=== PATIENT | female | born 1990 | race American Indian/Alaskan Native ===

== ENCOUNTER 2017-01-23 13:11 | Emergency (ER) | payer MEDICAID ==
[2017-01-23 15:02] LABS: Bilirubin,Urine NEG (Negative); Blood,Urine LG (Negative); Ketones,Urine NEG (Negative); Leukocyte Esterase,Urine NEG (Negative); Mucus,Urine 1+ /HPF; Nitrite,Urine NEG (Negative); Protein,Urine <15 mg/dL mg/dL (Negative); Urobilinogen,Urine < 2.0 mg/dL (<2.0)
--- NOTE | 2017-01-23 15:12 | Emergency Department Report ---
Chief Complaint: Vaginal Bleeding Stated Complaint: VAGINAL BLEEDING Time Seen by Provider: 01/23/17 15:04 - HPI History of Present Illness: Patient is a 26-year-old female is markedly 5 weeks who is experiencing vaginal bleeding. Patient states started relatively light but is picked up to the level of a period. Patient states she has some mild cramping in the suprapubic region. Patient has 2 living children has never had a miscarriage. Area fever at this time. Patient states her blood type is A+ - ROS Review of Systems: Review of systems negative except for those illness in HPI - Exam Vital Signs: Vital Signs 01/23/17 13:15 Temperature 97.6 F Pulse Rate 79 Respiratory 18 Rate Blood Pressure 142/62 O2 Sat by Pulse 100 Oximetry Physical Exam: Focused physical exam patient is alert and oriented 3 in no acute distress heart and lung exams are within normal limits abdomen is soft nondistended with mild tenderness in the suprapubic region. MSE screening note: Focused history and physical exam performed. Due to findings the following was ordered: Patient will have a quantitative drawn as well as ultrasound to rule out miscarriage ED Disposition for MSE Condition: Stable Referrals: PRIMARY CARE [Primary Care Provider] - 3-5 Days
--- NOTE | 2017-01-23 15:40 | Emergency Department Report ---
ED Female HPI - General Chief complaint: Vaginal Bleeding Stated complaint: VAGINAL BLEEDING Time Seen by Provider: 01/23/17 15:04 Source: patient Mode of arrival: Ambulatory Limitations: No Limitations - History of Present Illness Initial comments: Patient is a 26-year-old female is markedly 5 weeks who is experiencing vaginal bleeding. Patient states started relatively light but is picked up to the level of a period. Patient states she has some mild cramping in the suprapubic region. Patient has 2 living children has never had a miscarriage. Area fever at this time. Patient states her blood type is A+ MD Complaint: vaginal bleeding Onset/Timin -: Gradual, days(s) Radiation: suprapubic Severity: moderate Severity scale (0 -10): 4 Quality: cramping, aching Consistency: constant Improves with: none Worsens with: none Are you Now?: Yes Last Menstrual Period: 12/12/16 EDC: 09/18/17 - Related Data Previous Rx's Medication Instructions Recorded Last Taken Type Ciprofloxacin HCl [Ciprofloxacin 500 mg PO Q12HR #20 tab 06/24/15 Unknown Rx TAB] HYDROcodone/APAP 5-325 [[place] 1 each PO Q6HR PRN #20 tablet 06/24/15 Unknown Rx 5/325] metroNIDAZOLE [Flagyl] 500 mg PO Q8HR #30 tablet 06/24/15 Unknown Rx traMADol [Ultram] 50 mg PO Q8HR PRN #20 tablet 01/23/17 Unknown Rx Allergies Allergy/AdvReac Type Severity Reaction Status Date / Time No Known Allergies Allergy Unverified 06/24/15 11:15 ED Review of Systems ROS: Stated complaint: VAGINAL BLEEDING Other details as noted in HPI Constitutional: denies: chills, fever Eyes: denies: eye pain, eye discharge, vision change ENT: denies: ear pain, throat pain Respiratory: denies: cough, shortness of breath, wheezing Cardiovascular: denies: chest pain, palpitations Endocrine: no symptoms reported Gastrointestinal: denies: abdominal pain, nausea, diarrhea Genitourinary: denies: urgency, dysuria, discharge Musculoskeletal: denies: back pain, joint swelling, arthralgia Skin: denies: rash, lesions Neurological: denies: headache, weakness, paresthesias Psychiatric: denies: anxiety, depression Hematological/Lymphatic: denies: easy bleeding, easy bruising ED Past Medical Hx - Past Medical History Previous Medical History?: No - Surgical History Additional Surgical History: - Social History Smoking Status: Current Every Day Smoker Substance Use Type: None - Medications Home Medications: Home Medications Medication Instructions Recorded Confirmed Last Taken Type Ciprofloxacin HCl [Ciprofloxacin 500 mg PO Q12HR #20 tab 06/24/15 Unknown Rx TAB] HYDROcodone/APAP 5-325 [[place] 1 each PO Q6HR PRN #20 tablet 06/24/15 Unknown Rx 5/325] metroNIDAZOLE [Flagyl] 500 mg PO Q8HR #30 tablet 06/24/15 Unknown Rx traMADol [Ultram] 50 mg PO Q8HR PRN #20 tablet 01/23/17 Unknown Rx ED Physical Exam - General Limitations: No Limitations General appearance: alert, in no apparent distress - Head Head exam: Present: atraumatic, normocephalic - Eye Eye exam: Present: normal appearance - ENT ENT exam: Present: mucous membranes moist - Neck Neck exam: Present: normal inspection - Respiratory Respiratory exam: Present: normal lung sounds bilaterally. Absent: respiratory distress - Cardiovascular Cardiovascular Exam: Present: regular rate, normal rhythm. 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 Absent: tenderness, CVA tenderness (R), CVA tenderness (L), muscle spasm, paraspinal tenderness, vertebral tenderness - Neurological Exam Neurological exam: Present: alert, oriented X3 - Psychiatric Psychiatric exam: Present: normal affect, normal mood - Skin Skin exam: Present: warm, dry, intact, normal color. Absent: rash ED Course Vital Signs 01/23/17 13:15 Temperature 97.6 F Pulse Rate 79 Respiratory 18 Rate Blood Pressure 142/62 O2 Sat by Pulse 100 Oximetry ED Medical Decision Making - Medical Decision Making Patient is a 26-year-old female is markedly 5 weeks who is experiencing vaginal bleeding. Patient states started relatively light but is picked up to the level of a period. Patient states she has some mild cramping in the suprapubic region. Patient has 2 living children has never had a miscarriage. Area fever at this time. Patient states her blood type is A+ exam : pt appears well with nad , nontoxic abd soft nontender no rebound no hernia no bruit, pt deferres vaginal exam to obgyn, labs: hcg quat: 68.3, us bd/ transvag: no IUP, discussed finding with patient, pt will follow up with [facility] on thursday 2 days, pt has appointment confirmed with same. pt will be discharge in stable condition at this time. Critical care attestation.: If time is entered above; I have spent that time in minutes in the direct care of this critically ill patient, excluding procedure time. ED Disposition Clinical Impression: Miscarriage Disposition: DC- TO HOME OR SELFCARE Is pt being admited?: No Does the pt Need Aspirin: No Condition: Good Instructions: Spontaneous Miscarriage (ED) Additional Instructions: follow up with OBGYN at [facility] Prescriptions: traMADol [Ultram] 50 mg PO Q8HR PRN #20 tablet PRN Reason: Pain Referrals: PRIMARY CARE, [Primary Care Provider] - 3-5 Days Forms: Work/School Release Form(ED) Time of Disposition: 18:20
--- NOTE | 2017-01-23 17:40 | Ultrasound Report ---
FINAL REPORT PROCEDURE: Transvaginal obstetrical ultrasound. TECHNIQUE: Real-time transvaginal sonography of the uterus, placenta, amniotic fluid, adnexa, and fetus was performed with image documentation. Measurements were obtained to determine age/size. M-mode Doppler was used to document heartbeat. CPT 11617 HISTORY: Vaginal bleeding, 5 weeks . COMPARISON: No applicable studies. FINDINGS: The uterus measures 7.7 centimeters x 3.8 centimeters x 5.5 centimeters. The myometrium appears uniform. The endometrial echo complex appears uniform. The endometrium measures 12.9 millimeters. There is no intrauterine gestational sac. Correlation with a quantitative beta HCG is recommended. The left ovary is not well seen but is grossly normal. The right ovary is not visualized. There is no fluid in the cul-de-sac. IMPRESSION: No evidence of an intrauterine .
--- NOTE | 2017-01-23 18:00 | Ultrasound Report ---
FINAL REPORT PROCEDURE: Transabdominal obstetrical ultrasound. TECHNIQUE: Real-time transabdominal sonography of the uterus, placenta, amniotic fluid, adnexa, and fetus was performed with image documentation. Measurements were obtained to determine age/size. M-mode Doppler was used to document heartbeat. CPT 80627 HISTORY: Vaginal bleeding, 5 weeks . COMPARISON: No applicable studies. FINDINGS: Image quality is limited because the patient's bladder was not distended. The uterus measures 7.7 centimeters x 3.8 centimeters x 5.5 centimeters. The myometrium is grossly normal. The endometrial echo complex has a maximum thickness of 1.2 centimeters. There is no evidence of an intrauterine gestational sac. The left ovary appears normal. The right ovary is not identified. IMPRESSION: No evidence of an intrauterine . Correlation with quantitative beta HCG recommended.
[2017-01-23 18:30] VITALS: BP 138/70
== END 2017-01-23 18:29 | disposition home or self-care (01) ==
LOC: ED 13:11
DX: O03.9 Complete or unspecified spontaneous abortion without complication (principal); O99.331 Smoking (tobacco) complicating pregnancy, first trimester; Z3A.01 Less than 8 weeks gestation of pregnancy; F17.200 Nicotine dependence, unspecified, uncomplicated
CPT/HCPCS: 36415; 76801; 76817; 81001; 84702; 99284

== ENCOUNTER 2017-04-27 21:36 | Emergency (ER) | payer MEDICAID ==
[2017-04-27] MEDS ORDERED: TYLENOL ONE (21:59)
[2017-04-27 22:08] LABS: Hemoglobin 10.1 gm/dl (10.1-14.3); Mean Corpuscular HGB Conc 31 % (30-34); Mean Corpuscular Volume 79 fl (79-97); Platelet Count 288 K/mm3 (140-440); Red Blood Count 4.16 M/mm3 (3.65-5.03); Red Cell Distribution Width 16.1 % (13.2-15.2)
[2017-04-27 22:22] LABS: Alanine Aminotransferase 11 units/L (7-56); Albumin 3.2 g/dL (3.9-5); BUN/Creatinine Ratio 15; Blood Urea Nitrogen 9 mg/dL (7-17); Calcium 8.1 mg/dL (8.4-10.2); Calcium 8.4 mg/dL (8.4-10.2); Hemolysis Index 0
[2017-04-27 22:27] LABS: Mean Corpuscular Hemoglobin 24 pg (28-32)
[2017-04-27 23:05] LABS: Band Neutrophils # (Manual) 1.3 K/mm3; Basophils % (Manual) 0 % (0.0-1.8); Total Cells Counted 100
[2017-04-27 23:06] LABS: Giant Platelets Few; Hypochromasia 1+; Ovalocytes 1+
[2017-04-28] MEDS ORDERED: TYLENOL PO ONE ×2 (01:03→06:28)
[2017-04-28 03:25] LABS: Bilirubin,Urine NEG (Negative); Blood,Urine NEG (Negative); Color,Urine Straw (Yellow); Mucus,Urine FEW /HPF; Protein,Urine <15 mg/dL mg/dL (Negative); RBC,Urine < 1.0 /HPF (0.0-6.0); Urobilinogen,Urine < 2.0 mg/dL (<2.0)
[2017-04-28] MEDS ORDERED: NORCO 5/325 PO ONE (06:28)
--- NOTE | 2017-04-28 06:36 | Emergency Department Report ---
HPI - General Chief Complaint: Abdominal Pain Time Seen by Provider: 04/28/17 06:13 - HPI HPI: 26-year-old asthmatic female presents to the emergency department yesterday after having severe pelvic pain and passing out. She thinks she did hit her head at that time but denies any laceration or any obvious deformity. She also has been having a few days of sore throat and feels like her neck is swollen. She also complains of some ear pain. At that time that the patient had the beginning of her pelvic pain, she had some release of some type of vaginal discharge but that has since stopped. She denies any vaginal bleeding. She has a known history of ovarian cyst and says "I think the cyst ruptured." No recent travel or sick contacts at home. She did not take anything for her symptoms prior to presentation. ED Past Medical Hx - Past Medical History Previous Medical History?: Yes Additional medical history: ovarian cyst - Surgical History Past Surgical History?: Yes Additional Surgical History: - Social History Smoking Status: Never Smoker - Medications Home Medications: Home Medications Medication Instructions Recorded Confirmed Last Taken Type Ciprofloxacin HCl [Ciprofloxacin 500 mg PO Q12HR #20 tab 06/24/15 Unknown Rx TAB] HYDROcodone/APAP 5-325 [[place] 1 each PO Q6HR PRN #20 tablet 06/24/15 Unknown Rx 5/325] Amoxicillin/Potassium Clav 1 each PO BID #20 tablet 04/28/17 Unknown Rx [Augmentin 500-125 Tablet] HYDROcodone/ACETAMINOPHEN [[place] 1 each PO Q6H PRN #12 tablet 04/28/17 Unknown Rx 5-325 Tablet] metroNIDAZOLE [Flagyl TAB] 500 mg PO BID #14 tablet 04/28/17 Unknown Rx traMADol [Ultram 50 MG tab] 50 mg PO Q8HR PRN #12 tablet 04/28/17 Unknown Rx ED Review of Systems ROS: Stated complaint: PASS OUT Other details as noted in HPI Comment: All other systems reviewed and negative Constitutional: fever. denies: weakness Eyes: denies: eye pain, eye discharge, vision change ENT: ear pain, throat pain Respiratory: denies: cough, shortness of breath, wheezing Cardiovascular: denies: chest pain, palpitations Gastrointestinal: denies: vomiting, constipation Genitourinary: other (pelvic pain). denies: dysuria Musculoskeletal: denies: back pain, joint swelling, arthralgia Skin: denies: rash, lesions Neurological: denies: headache, weakness, paresthesias Physical Exam - Physical Exam Vital Signs: Vital Signs 04/27/17 04/28/17 04/28/17 21:44 06:15 06:16 Temperature 100.3 F H Pulse Rate 89 Respiratory 16 16 16 Rate Blood Pressure 125/66 Blood Pressure 122/82 [Left] O2 Sat by Pulse 100 100 100 Oximetry Physical Exam: GENERAL: The patient is well-developed well-nourished. HENT: Normocephalic. Atraumatic. Patient has moist mucous membranes. EYES: Extraocular motions are intact. Pupils equal reactive to light bilaterally. NECK: Supple. Trachea is midline. CHEST/LUNGS: Clear to auscultation. There is no respiratory distress noted. HEART/CARDIOVASCULAR: Regular. There is no tachycardia. There is no murmur. ABDOMEN: Abdomen is soft, nontender. Patient has normal bowel sounds. There is no abdominal distention. SKIN: Skin is warm and dry. NEURO: The patient is awake, alert, and oriented. The patient is cooperative. The patient has no focal neurologic deficits. The patient has normal speech and gait. MUSCULOSKELETAL: There is no tenderness or deformity. There is no limitation range of motion. There is no evidence of acute injury. : No vaginal or labial lesions seen. There is some malodorous mild yellowish white discharge seen in the vaginal vault. ED Course Vital Signs 04/27/17 04/28/17 04/28/17 21:44 06:15 06:16 Temperature 100.3 F H Pulse Rate 89 Respiratory 16 16 16 Rate Blood Pressure 125/66 Blood Pressure 122/82 [Left] O2 Sat by Pulse 100 100 100 Oximetry ED Medical Decision Making - Lab Data Result diagrams: 04/27/17 21:56 04/27/17 21:56 - Radiology Data Radiology results: report reviewed ULTRASOUND PELVIS DUPLEX DOPPLER COMPLETE ULTRASOUND TRANSVAGINAL HISTORY: Pelvic pain. COMPARISON: 06/24/15. TECHNIQUE: Transabdominal and transvaginal ultrasound with color and spectral doppler interrogation. FINDINGS: Uterus: The uterus is anteverted. The uterus measures 7.6 x 4.8 x 5.3 cm. No uterine fibroids are detected. The cervix contains a few tiny nabothian cysts but is otherwise unremarkable. Endometrium: 11 mm. No mass or fluid collection. Right ovary: 2.6 x 1.9 x 1.6 cm. No focal abnormality. Left ovary: 2.6 x 1.5 x 1.5 cm. No focal abnormality. No pelvic fluid or mass is identified. Spectral wave forms demonstrate arterial flow to both ovaries. IMPRESSION: Unremarkable transabdominal and transvaginal pelvic ultrasounds. Transcribed By: TTR Dictated By: ROBYN CRUZ JR, MD Electronically Authenticated By: ROBYN CRUZ JR, MD Signed Date/Time: 04/28/17 0809 - Medical Decision Making Patient presents with complaints of sore throat, ear pain, body aches, pelvic pain. She has a leukocytosis of 20,000 concerning for some underlying infection. The patient was positive on her rapid strep test. On top of that, the patient was positive for bacterial vaginosis. Ultrasound of the pelvis did not show any torsion, cysts, abscess, fluid collections or any other acute process. She was given some Tylenol and pain medication and upon reevaluation she is feeling improved. Fever has resolved and all vital signs and stable throughout her ED course. She will be started on Augmentin for her strep pharyngitis and Flagyl for the BV. She will follow-up with her primary care physician and [facility] and will return to the ER with any worsening of her symptoms or any acute distress. - Differential Diagnosis strep pharyngitis, viral syndrome, BV, , UTI Critical Care Time: No Critical care attestation.: If time is entered above; I have spent that time in minutes in the direct care of this critically ill patient, excluding procedure time. ED Disposition Clinical Impression: Strep pharyngitis, Bacterial vaginosis, Pelvic pain Disposition: - TO HOME OR SELFCARE Is pt being admited?: No Condition: Stable Instructions: Bacterial Vaginosis (ED), Strep Throat (ED) Additional Instructions: Take the Augmentin and Flagyl as prescribed. I recommend picking up a probiotic since you are on 2 different antibiotics. Flagyl/metronidazole has a very severe reaction to any amount of alcohol consumed and therefore I recommend that you not drink any alcohol while taking this medication and even for a day or 2 after completing the medication. Follow-up with your primary care physician and [facility]. Return to the emergency Department with any worsening of your symptoms or any acute distress. You have been prescribed a medication that is sedating and therefore should not be taken prior to driving, working, and responsible for children and in no way should be mixed with alcohol of any quantity. Prescriptions: Amoxicillin/Potassium Clav [Augmentin 500-125 Tablet] 1 each PO BID #20 tablet HYDROcodone/ACETAMINOPHEN [[place] 5-325 Tablet] 1 each PO Q6H PRN #12 tablet PRN Reason: Pain metroNIDAZOLE [Flagyl TAB] 500 mg PO BID #14 tablet traMADol [Ultram 50 MG tab] 50 mg PO Q8HR PRN #12 tablet PRN Reason: Pain Referrals: PRIMARY CARE, [Primary Care Provider] - 3-5 Days Forms: Work/School Release Form(ED)
[2017-04-28] MEDS ORDERED: AUGMENTIN 875 MG PO ONE (06:56)
[2017-04-28 07:01] LABS: HCG Qualitative,Urine Negative (Negative)
--- NOTE | 2017-04-28 08:17 | Ultrasound Report ---
ULTRASOUND PELVIS DUPLEX DOPPLER COMPLETE ULTRASOUND TRANSVAGINAL HISTORY: Pelvic pain. COMPARISON: 06/24/15. TECHNIQUE: Transabdominal and transvaginal ultrasound with color and spectral doppler interrogation. FINDINGS: Uterus: The uterus is anteverted. The uterus measures 7.6 x 4.8 x 5.3 cm. No uterine fibroids are detected. The cervix contains a few tiny nabothian cysts but is otherwise unremarkable. Endometrium: 11 mm. No mass or fluid collection. Right ovary: 2.6 x 1.9 x 1.6 cm. No focal abnormality. Left ovary: 2.6 x 1.5 x 1.5 cm. No focal abnormality. No pelvic fluid or mass is identified. Spectral wave forms demonstrate arterial flow to both ovaries. IMPRESSION: Unremarkable transabdominal and transvaginal pelvic ultrasounds.
[2017-04-28 09:10] VITALS: BP 107/61
== END 2017-04-28 10:00 | disposition home or self-care (01) ==
LOC: ED 21:36
DX: N76.0 Acute vaginitis (principal); J02.0 Streptococcal pharyngitis
CPT/HCPCS: 36415; 76830; 80048; 80053; 81001; 81025; 85007; 85025; 87086; 87210; 87430; 87591; 93975; 99284

== ENCOUNTER 2017-07-20 14:38 | Emergency (ER) | payer SELFPAY ==
--- NOTE | 2017-07-20 17:18 | Emergency Department Report ---
ED Allergic Reaction HPI - General Chief complaint: Skin Rash Stated complaint: RASH ALL OVER BODY Time Seen by Provider: 07/20/17 17:17 Source: patient Mode of arrival: Ambulatory Limitations: No Limitations - History of Present Illness Initial Comments: 26-year-old female past medical history nut allergy presents with complaint of itchy hives and rash on face arms chest back and legs since early this morning. Patient denies contact with any new allergens including food allergies animal dander new medications. Patient denies any facial swelling shortness of breath. Patient speaking in full sentences. Denies any recent travel use of new cosmetics or soaps or fabrics. Patient is fully lucid awake alert and oriented 3 speaking in full sentences with no audible wheezing or stridor. Denies any shortness of breath at this time. Patient MD Complaint: allergic reaction, hives -: This morning Exposure: unknown Symptoms: rash, itching Severity: mild Treatment Prior to Arrival: benadryl - Related Data Previous Rx's Medication Instructions Recorded Last Taken Type Ciprofloxacin HCl [Ciprofloxacin 500 mg PO Q12HR #20 tab 06/24/15 Unknown Rx TAB] HYDROcodone/APAP 5-325 [[place] 1 each PO Q6HR PRN #20 tablet 06/24/15 Unknown Rx 5/325] Amoxicillin/Potassium Clav 1 each PO BID #20 tablet 04/28/17 Unknown Rx [Augmentin 500-125 Tablet] HYDROcodone/ACETAMINOPHEN [[place] 1 each PO Q6H PRN #12 tablet 04/28/17 Unknown Rx 5-325 Tablet] metroNIDAZOLE [Flagyl TAB] 500 mg PO BID #14 tablet 04/28/17 Unknown Rx traMADol [Ultram 50 MG tab] 50 mg PO Q8HR PRN #12 tablet 04/28/17 Unknown Rx EPINEPHrine [Epipen] 0.3 mg IJ ONCE PRN #1 auto.injct 07/20/17 Unknown Rx Famotidine [Pepcid] 20 mg PO BID PRN #30 tablet 07/20/17 Unknown Rx Hydroxyzine HCl 25 mg PO Q8H PRN #20 tablet 07/20/17 Unknown Rx Loratadine [Claritin] 10 mg PO DAILY PRN #30 tablet 07/20/17 Unknown Rx Prednisone [predniSONE 10 mg 10 mg PO .TAPER #1 tab.ds.pk 07/20/17 Unknown Rx (6-Day Pack, 21 Tabs)] Allergies Allergy/AdvReac Type Severity Reaction Status Date / Time nut - unspecified Allergy Rash Verified 07/20/17 15:48 peanut Allergy Anaphylaxis Verified 07/20/17 15:48 tree and shrub pollen Allergy Rash Verified 07/20/17 15:48 ED Review of Systems ROS: Stated complaint: RASH ALL OVER BODY Other details as noted in HPI Constitutional: denies: chills, fever Eyes: denies: eye pain, eye discharge, vision change ENT: denies: ear pain, throat pain Respiratory: denies: cough, shortness of breath, wheezing Cardiovascular: denies: chest pain, palpitations Endocrine: no symptoms reported Gastrointestinal: denies: abdominal pain, nausea, diarrhea Genitourinary: denies: urgency, dysuria, discharge Musculoskeletal: denies: back pain, joint swelling, arthralgia Skin: as per HPI, rash, pruritus. denies: lesions Neurological: denies: headache, weakness, paresthesias Psychiatric: denies: anxiety, depression Hematological/Lymphatic: denies: easy bleeding, easy bruising ED Past Medical Hx - Past Medical History Additional medical history: ovarian cyst - Surgical History Additional Surgical History: - Social History Smoking Status: Current Every Day Smoker Substance Use Type: None - Medications Home Medications: Home Medications Medication Instructions Recorded Confirmed Last Taken Type Ciprofloxacin HCl [Ciprofloxacin 500 mg PO Q12HR #20 tab 06/24/15 Unknown Rx TAB] HYDROcodone/APAP 5-325 [[place] 1 each PO Q6HR PRN #20 tablet 06/24/15 Unknown Rx 5/325] Amoxicillin/Potassium Clav 1 each PO BID #20 tablet 04/28/17 Unknown Rx [Augmentin 500-125 Tablet] HYDROcodone/ACETAMINOPHEN [[place] 1 each PO Q6H PRN #12 tablet 04/28/17 Unknown Rx 5-325 Tablet] metroNIDAZOLE [Flagyl TAB] 500 mg PO BID #14 tablet 04/28/17 Unknown Rx traMADol [Ultram 50 MG tab] 50 mg PO Q8HR PRN #12 tablet 04/28/17 Unknown Rx EPINEPHrine [Epipen] 0.3 mg IJ ONCE PRN #1 auto.injct 07/20/17 Unknown Rx Famotidine [Pepcid] 20 mg PO BID PRN #30 tablet 07/20/17 Unknown Rx Hydroxyzine HCl 25 mg PO Q8H PRN #20 tablet 07/20/17 Unknown Rx Loratadine [Claritin] 10 mg PO DAILY PRN #30 tablet 07/20/17 Unknown Rx Prednisone [predniSONE 10 mg 10 mg PO .TAPER #1 tab.ds.pk 07/20/17 Unknown Rx (6-Day Pack, 21 Tabs)] ED Physical Exam - General Limitations: No Limitations General appearance: alert, in no apparent distress - Head Head exam: Present: atraumatic, normocephalic - Eye Eye exam: Present: normal appearance, PERRL, EOMI - ENT ENT exam: Present: normal exam (no swelling of oropharynx oropharynx is patent on exam), mucous membranes moist - Neck Neck exam: Present: normal inspection - Respiratory Respiratory exam: Present: normal lung sounds bilaterally. Absent: respiratory distress - Cardiovascular Cardiovascular Exam: Present: regular rate, normal rhythm. Absent: systolic murmur, diastolic murmur, rubs, gallop - GI/Abdominal GI/Abdominal exam: Present: soft, normal bowel sounds - Extremities Exam Extremities exam: Present: normal inspection - Back Exam Back exam: Present: normal inspection - Neurological Exam Neurological exam: Present: alert, oriented X3, CN II-XII intact, normal gait - Psychiatric Psychiatric exam: Present: normal affect, normal mood - Skin Skin exam: Present: warm, dry, intact, normal color, urticaria (patient has hives on arms legs abdomen and back). Absent: rash - Expanded Skin Exam Expanded Description of rash: Present: urticarial ED Course Vital Signs 07/20/17 07/20/17 15:42 18:41 Temperature 98.3 F Pulse Rate 97 H 91 H Respiratory 18 18 Rate Blood Pressure 124/76 Blood Pressure 117/79 [Left] O2 Sat by Pulse 97 100 Oximetry ED Medical Decision Making - Medical Decision Making A/P: Urticaria, acute allergic reaction 1- patient given dose of Decadron, Benadryl, and Pepcid 2- will discharge patient with course of antihistamines, course of steroids, EpiPen for angioedema should she develop this. I educated patient on signs and symptoms of angioedema and advised to return to the ED if she develops this at all. Patient stated she understood my instructions. 3- I advised patient to return to the ED if she experiences any lip swelling significant shortness of breath rapid spread of urticaria. Referral to rehab assistant 4- vital signs rechecked and stable for discharge Critical care attestation.: If time is entered above; I have spent that time in minutes in the direct care of this critically ill patient, excluding procedure time. ED Disposition Clinical Impression: Hives Allergic reaction Qualifiers: Encounter type: initial encounter Qualified Code(s): T78.40XA - Allergy, unspecified, initial encounter Disposition: TO HOME OR SELFCARE Is pt being admited?: No Does the pt Need Aspirin: No Condition: Stable Instructions: Urticaria (ED), Allergies (ED) Prescriptions: EPINEPHrine [Epipen] 0.3 mg IJ ONCE PRN #1 auto.injct PRN Reason: Angioedema Famotidine [Pepcid] 20 mg PO BID PRN #30 tablet PRN Reason: Allergic Reaction Hydroxyzine HCl 25 mg PO Q8H PRN #20 tablet PRN Reason: Allergic Reaction Loratadine [Claritin] 10 mg PO DAILY PRN #30 tablet PRN Reason: Itching Prednisone [predniSONE 10 mg (6-Day Pack, 21 Tabs)] 10 mg PO .TAPER #1 tab.ds.pk Referrals: [facility] [Outside] - 3-5 Days [facility] [Outside] - 3-5 Days [facility] [Provider Group] - 3-5 Days Forms: Accompanied Note, Work/School Release Form(ED) Time of Disposition: 18:19
[2017-07-20] MEDS ORDERED: BENADRYL IM ONE (17:27)
[2017-07-20] MEDS ORDERED: PEPCID PO ONE (17:27)
[2017-07-20] MEDS ORDERED: DECADRON IM ONE (17:27)
[2017-07-20 18:42] VITALS: BP 117/79
== END 2017-07-20 18:43 | disposition home or self-care (01) ==
LOC: ED 14:38
DX: T78.40XA Allergy, unspecified, initial encounter (principal); L50.0 Allergic urticaria; F17.200 Nicotine dependence, unspecified, uncomplicated; N83.209 Unspecified ovarian cyst, unspecified side; Z91.010 Allergy to peanuts; Z91.048 Other nonmedicinal substance allergy status; Z79.899 Other long term (current) drug therapy
CPT/HCPCS: 96372; 99282; J1100; J1200

== ENCOUNTER 2018-06-15 09:41 | Emergency (ER) | payer MEDICAID ==
[2018-06-15 09:47] VITALS: BP 111/67
[2018-06-15] MEDS ORDERED: ADRENALINE P/F SUB-Q ONE (11:57)
[2018-06-15] MEDS ORDERED: BENADRYL IM ONE (11:57)
[2018-06-15] MEDS ORDERED: DECADRON IM ONE (11:57)
--- NOTE | 2018-06-15 12:01 | Emergency Department Report ---
- General Chief complaint: Skin Rash Stated complaint: RASH Time Seen by Provider: 06/15/18 11:34 Source: patient Mode of arrival: Ambulatory Limitations: No Limitations - History of Present Illness Initial comments: Patient is a 27-year-old asthmatic female presenting with urticarial type rash diffusely. Patient used EpiPen yesterday with no improvement. Patient states she has a peanut allergy. Patient states that she's had similar reaction in the past which left her with dark hyperpigmented spots on her body. Patient states that the has been present since just today. Patient was started on a Medrol Dosepak and P Rishabh but she states has been no relief as of yet. Patient denies any shortness of breath nausea vomiting fevers chills diarrhea at this time. - Related Data Previous Rx's Medication Instructions Recorded Last Taken Type Ciprofloxacin HCl [Ciprofloxacin 500 mg PO Q12HR #20 tab 06/24/15 Unknown Rx TAB] HYDROcodone/APAP 5-325 [[place] 1 each PO Q6HR PRN #20 tablet 06/24/15 Unknown Rx 5/325] Amoxicillin/Potassium Clav 1 each PO BID #20 tablet 04/28/17 Unknown Rx [Augmentin 500-125 Tablet] HYDROcodone/ACETAMINOPHEN [[place] 1 each PO Q6H PRN #12 tablet 04/28/17 Unknown Rx 5-325 Tablet] metroNIDAZOLE [Flagyl TAB] 500 mg PO BID #14 tablet 04/28/17 Unknown Rx traMADol [Ultram 50 MG tab] 50 mg PO Q8HR PRN #12 tablet 04/28/17 Unknown Rx EPINEPHrine [Epipen] 0.3 mg IJ ONCE PRN #1 auto.injct 07/20/17 Unknown Rx Famotidine [Pepcid] 20 mg PO BID PRN #30 tablet 07/20/17 Unknown Rx Loratadine [Claritin] 10 mg PO DAILY PRN #30 tablet 07/20/17 Unknown Rx Prednisone [predniSONE 10 mg 10 mg PO .TAPER #1 tab.ds.pk 07/20/17 Unknown Rx (6-Day Pack, 21 Tabs)] hydrOXYzine HCl [Hydroxyzine HCl] 25 mg PO Q8H PRN #20 tablet 07/20/17 Unknown Rx Allergies Allergy/AdvReac Type Severity Reaction Status Date / Time nut - unspecified Allergy Rash Verified 06/15/18 09:42 peanut Allergy Anaphylaxis Verified 06/15/18 09:42 tree and shrub pollen Allergy Rash Verified 06/15/18 09:42 Abscess Boil HPI - HPI Chief Complaint: Skin Rash Stated Complaint: RASH Time Seen by Provider: 06/15/18 11:34 Home Medications: Previous Rx's Medication Instructions Recorded Last Taken Type Ciprofloxacin HCl [Ciprofloxacin 500 mg PO Q12HR #20 tab 06/24/15 Unknown Rx TAB] HYDROcodone/APAP 5-325 [[place] 1 each PO Q6HR PRN #20 tablet 06/24/15 Unknown Rx 5/325] Amoxicillin/Potassium Clav 1 each PO BID #20 tablet 04/28/17 Unknown Rx [Augmentin 500-125 Tablet] HYDROcodone/ACETAMINOPHEN [[place] 1 each PO Q6H PRN #12 tablet 04/28/17 Unknown Rx 5-325 Tablet] metroNIDAZOLE [Flagyl TAB] 500 mg PO BID #14 tablet 04/28/17 Unknown Rx traMADol [Ultram 50 MG tab] 50 mg PO Q8HR PRN #12 tablet 04/28/17 Unknown Rx EPINEPHrine [Epipen] 0.3 mg IJ ONCE PRN #1 auto.injct 07/20/17 Unknown Rx Famotidine [Pepcid] 20 mg PO BID PRN #30 tablet 07/20/17 Unknown Rx Loratadine [Claritin] 10 mg PO DAILY PRN #30 tablet 07/20/17 Unknown Rx Prednisone [predniSONE 10 mg 10 mg PO .TAPER #1 tab.ds.pk 07/20/17 Unknown Rx (6-Day Pack, 21 Tabs)] hydrOXYzine HCl [Hydroxyzine HCl] 25 mg PO Q8H PRN #20 tablet 07/20/17 Unknown Rx Allergies/Adverse Reactions: Allergies Allergy/AdvReac Type Severity Reaction Status Date / Time nut - unspecified Allergy Rash Verified 06/15/18 09:42 peanut Allergy Anaphylaxis Verified 06/15/18 09:42 tree and shrub pollen Allergy Rash Verified 06/15/18 09:42 ED Review of Systems ROS: Stated complaint: RASH Other details as noted in HPI Comment: All other systems reviewed and negative ED Past Medical Hx - Past Medical History Additional medical history: ovarian cyst - Surgical History Additional Surgical History: - Social History Smoking Status: Current Every Day Smoker Substance Use Type: None - Medications Home Medications: Home Medications Medication Instructions Recorded Confirmed Last Taken Type Ciprofloxacin HCl [Ciprofloxacin 500 mg PO Q12HR #20 tab 06/24/15 Unknown Rx TAB] HYDROcodone/APAP 5-325 [[place] 1 each PO Q6HR PRN #20 tablet 06/24/15 Unknown Rx 5/325] Amoxicillin/Potassium Clav 1 each PO BID #20 tablet 04/28/17 Unknown Rx [Augmentin 500-125 Tablet] HYDROcodone/ACETAMINOPHEN [[place] 1 each PO Q6H PRN #12 tablet 04/28/17 Unknown Rx 5-325 Tablet] metroNIDAZOLE [Flagyl TAB] 500 mg PO BID #14 tablet 04/28/17 Unknown Rx traMADol [Ultram 50 MG tab] 50 mg PO Q8HR PRN #12 tablet 04/28/17 Unknown Rx EPINEPHrine [Epipen] 0.3 mg IJ ONCE PRN #1 auto.injct 07/20/17 Unknown Rx Famotidine [Pepcid] 20 mg PO BID PRN #30 tablet 07/20/17 Unknown Rx Loratadine [Claritin] 10 mg PO DAILY PRN #30 tablet 07/20/17 Unknown Rx Prednisone [predniSONE 10 mg 10 mg PO .TAPER #1 tab.ds.pk 07/20/17 Unknown Rx (6-Day Pack, 21 Tabs)] hydrOXYzine HCl [Hydroxyzine HCl] 25 mg PO Q8H PRN #20 tablet 07/20/17 Unknown Rx ED Physical Exam - General Limitations: No Limitations General appearance: alert, in no apparent distress - Head Head exam: Present: atraumatic, normocephalic - Eye Eye exam: Present: normal appearance - ENT ENT exam: Present: mucous membranes moist - Neck Neck exam: Present: normal inspection - Respiratory Respiratory exam: Present: normal lung sounds bilaterally. Absent: respiratory distress, wheezes, rales, rhonchi - Cardiovascular Cardiovascular Exam: Present: regular rate, normal rhythm. Absent: systolic murmur, diastolic murmur, rubs, gallop - GI/Abdominal GI/Abdominal exam: Present: soft, normal bowel sounds - Extremities Exam Extremities exam: Present: normal inspection - Back Exam Back exam: Present: normal inspection - Neurological Exam Neurological exam: Present: alert, oriented X3 - Psychiatric Psychiatric exam: Present: normal affect, normal mood - Skin Skin exam: Present: warm, dry, intact, normal color, urticaria (one of the areas of hives on her posterior torso on the right does have some blistering versus popped.). Absent: rash ED Course Vital Signs 06/15/18 09:46 Temperature 97.9 F Pulse Rate 76 Respiratory 18 Rate Blood Pressure 111/67 O2 Sat by Pulse 100 Oximetry ED Medical Decision Making - Medical Decision Making Patient likely with a urticarial type disease. Patient has not been on any meds recently and erythema multiforme is less likely. There is no classic Hamilton tree distribution on her back making a pityriasis less likely. Patient to continue with the Medrol Dosepak in home regimen. I did give the patient doses subcutaneous epi as well as Decadron shot. patient referred to dermatology. - Differential Diagnosis urticaria, erythema multiforme, syphilis, pityriasis rosacea Critical care attestation.: If time is entered above; I have spent that time in minutes in the direct care of this critically ill patient, excluding procedure time. ED Disposition Clinical Impression: Urticaria Disposition: DC-01 TO HOME OR SELFCARE Is pt being admited?: No Does the pt Need Aspirin: No Condition: Stable Instructions: Acute Rash (ED) Referrals: KATIE GERMAN MD [Staff Physician] - 3-5 Days Time of Disposition: 12:01
== END 2018-06-15 12:28 | disposition home or self-care (01) ==
LOC: ED 09:41
DX: L50.9 Urticaria, unspecified (principal); F17.200 Nicotine dependence, unspecified, uncomplicated
CPT/HCPCS: 96372; 99282; J0171; J1100; J1200

== ENCOUNTER 2019-03-15 05:49 | Day surgery (SDC) | payer MEDICAID ==
[~2019-03-15 05:49] MED LIST: LACTATED RINGERS 1,000 ML IV SCH
[2019-03-15] MEDS ORDERED: MIDAZOLAM 2 MG/2 ML INJ IV NR (06:00)
--- NOTE | 2019-03-15 07:02 | Anesthesia Day of Surgery ---
Anesthesia Day of Surgery - Day of Surgery Patient Examined: Yes Patient H&P Reviewed: Yes Patient is NPO: Yes
--- NOTE | 2019-03-15 07:07 | Anesthesia Consultation ---
Anesthesia Consult and Med Hx Date of service: 03/15/19 - Airway Anesthetic Teeth Evaluation: Good ROM Head & Neck: Adequate Mental/Hyoid Distance: Adequate Mallampati Class: Class III Intubation Access Assessment: Probably Good - Pre-Operative Health Status ASA Pre-Surgery Classification: ASA2 Proposed Anesthetic Plan: General, MAC - Pulmonary Hx Smoking: Yes (SINCE AGE 19; 3-4CIG/DAY) - Central Nervous System Hx Psychiatric Problems: Yes - Hematic Hx Sickle Cell Disease: No - Other Systems Hx Alcohol Use: Yes (OCCA WINE) Hx Substance Use: No Hx Cancer: No Hx Obesity: Yes (BMI 35)
[2019-03-15] MEDS ORDERED: LIDOCAINE MPF (2%) 20 MG/1 ML VIAL 5 ML ONE (07:08)
[2019-03-15] MEDS ORDERED: fentaNYL 100 MCG/2 ML INJ ONE ×2 (07:08→08:08)
[2019-03-15] MEDS ORDERED: PROPOFOL 200 MG/20 ML VIAL IV ONE (07:08)
[2019-03-15] MEDS ORDERED: ONDANSETRON 4 MG/2 ML INJ ONE (07:11)
[2019-03-15] MEDS ORDERED: dexAMETHasone 20 MG/5 ML VIAL ONE (07:11)
[2019-03-15] MEDS ORDERED: LIDOCAINE (1%) 10 MG/1 ML VIAL 20 ML MDV ONE (07:26)
[2019-03-15] MEDS ORDERED: BUPIVACAINE/PF (0.25%) 2.5 MG/ML 30 ML VIAL INFILTRATI ONE ×3 (07:27→07:48)
[2019-03-15] MEDS ORDERED: LIDOCAINE (1%) 10 MG/1 ML VIAL 20 ML MDV INFILTRATI ONE (07:48)
[2019-03-15] MEDS ORDERED: ceFAZolin/STERILE WATER 2 GM/20 ML SYRINGE IV NR (08:00)
[2019-03-15] MEDS ORDERED: ETOMIDATE 20 MG/10 ML INJ IV ONE (08:00)
[2019-03-15] MEDS ORDERED: KETOROLAC 30 MG/1 ML INJ ONE (08:32)
--- NOTE | 2019-03-15 08:53 | Short Stay Summary ---
Short Stay Documentation Date of service: 03/15/19 - History Principal diagnosis: soft tissue mass left lower quadrant H&P: obtained from office - Allergies and Medications Current Medications: Allergies nut - unspecified Allergy (Verified 03/10/19 16:03) Anaphylaxis peanut Allergy (Verified 03/10/19 16:03) Anaphylaxis tree and shrub pollen Allergy (Verified 03/10/19 16:03) Anaphylaxis Home Medications Medication Instructions Recorded Confirmed Last Taken Type No Known Home Medications [No 03/10/19 03/10/19 Unknown History Reported Home Medications] Active Medications Cefazolin Sodium (Ancef/Sterile Water 2 Gm/20 Ml) 2 gm IV PREOP NR Stop: 03/15/19 20:00 Lactated Ringer's (Lactated Ringers) 1,000 mls @ 100 mls/hr IV DIRECT DIMITRI Last Admin: 03/15/19 07:00 Dose: 100 mls/hr Documented by: Midazolam HCl (Versed) 2 mg IV PREOP NR Stop: 03/15/19 23:59 Last Admin: 03/15/19 07:10 Dose: 2 mg Documented by: - Brief post op/procedure progress note Date of procedure: 03/15/19 Pre-op diagnosis: soft tissue mass left lower quadrant Post-op diagnosis: same Procedure: Excision mass of left lower quadrant with complex closure Anesthesia: GETA (LMA), local Findings: 3 cm firm mass of left lower quadrant involving fascia Marked - short stitch superior, long stitch lateral and double suture tails deep Surgeon: TODD GARRIDO Estimated blood loss: minimal Pathology: list (mass left lower quadrant) Specimen disposition: to lab Condition: stable - Hospital course Hospital course: Pt observed in PACU and discharged to home in stable condition - Disposition Condition at discharge: Good Disposition: DC-01 TO HOME OR SELFCARE Short Stay Discharge Plan Activity: no restrictions Diet: regular Wound: open to air, per your surgeon's advice Additional Instructions: SEE PRINTED DISCHARGE INSTRUCTIONS Follow up with: HENRY RODRIGUEZ MD [Primary Care Provider] - 7 Days TODD GARRIDO DO [Staff Physician] - 14 Days Prescriptions: Ibuprofen [Motrin 800 MG tab] 800 mg PO Q8HR PRN #30 tablet PRN Reason: Pain, Moderate (4-6) HYDROcodone/APAP 5-325 [[place] 5/325] 1 each PO Q6HR PRN #10 tablet PRN Reason: Pain , Severe (7-10)
[2019-03-15] MEDS ORDERED: ONDANSETRON 4 MG/2 ML INJ IV PRN (09:17)
[2019-03-15] MEDS: HYDROmorphone 1 MG/1 ML INJ IV PRN ×2 (09:24→09:50)
[2019-03-15] MEDS ORDERED: HYDROcodone/ACETAMINOPHEN 5-325 MG TAB PO PRN (09:27)
[2019-03-15 10:27] VITALS: BP 110/73
--- NOTE | 2019-03-15 18:11 | Post Anesthesia Evaluation ---
- Post Anesthesia Evaluation Patient Participated: Yes Airway Patent: Yes Stable Respiratory Function: Yes Nausea/Vomiting: No Temp > 96.8F: Yes Pain Manageable: Yes Adequeate Hydration: Yes Anesthesia Complications: No Block Receding Appropriately: Not Applicable Patient on Ventilator: No
--- NOTE | 2019-03-18 09:23 | Operative Report ---
Operative Report Operative Report: Date of procedure: 03/15/19 Pre-op diagnosis: soft tissue mass left lower quadrant Post-op diagnosis: same Procedure: Excision mass of left lower quadrant with complex closure Anesthesia: GETA (LMA), local Findings: 3 cm firm mass of left lower quadrant involving fascia Marked - short stitch superior, long stitch lateral and double suture tails deep Surgeon: TODD GARRIDO Estimated blood loss: minimal Pathology: list (mass left lower quadrant) Specimen disposition: to lab Condition: stable - Hospital course Hospital course: Pt observed in PACU and discharged to home in stable condition HPI an indication: 28year-old female with a history of a who is 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 Dillon for evaluation of the left lower quadrant soft tissue mass. The patient states that she has been experiencing pain in this location for the last 2 years, since her . She had a gynecologic workup including an ultrasound which showed unremarkable reproductive organs, however did note a subcutaneous mass in the location of her pain. There was a firm mass palpable in this area with point tenderness to palpation. It was recommended that she undergo exploration and removal of the mass. All risks, benefits, alternatives to surgery were discussed with the patient questions answered. Consent obtained. Procedure in detail: Patient was identified in the preoperative area, taken back to the operating room placed on the operating table in supine position. After anesthesia was induced the abdomen was prepped and draped in usual sterile fashion a timeout performed. Local anesthetics infiltrated to skin and subcutaneous tissue at the intended incision site. A 3 cm incision was made in the left lower quadrant overlying the palpable mass. Dissection was carried down through the skin and subcutaneous tissue using electrocautery until the mass was identified. The mass was dissected free from the surrounding tissue using combination of blunt dissection with a hemostat and electrocautery. The mass did involve the fascia, part of which was removed during the dissection. Once the entire mass was removed, it was examined. An measured 3 cm and was firm. Marking of the margins was performed with suture as above. The mass was passed off the table as a specimen. The wound was irrigated With saline and hemostasis ensured. The fascia overlying the exposed muscle was reapproximated using figure of 8, 0 Vicryl suture. The deep dermal layer was closed with 3-0 Vicryl interrupted sutures. The skin was closed with 4-0 Monocryl subcuticular stitches and skin glue. At the end of the case, all sponge, instrument, sharp counts are correct 2. The patient was awoken from anesthesia, extubated, taken to PACU in stable condition.
== END 2019-03-15 05:50 | disposition home or self-care (01) ==
LOC: OR 05:49
PROVIDERS: ATTEND Surgery
DX: R19.04 Left lower quadrant abdominal swelling, mass and lump (principal); N80.9 Endometriosis, unspecified; M79.9 Soft tissue disorder, unspecified; E66.9 Obesity, unspecified; F17.210 Nicotine dependence, cigarettes, uncomplicated; Z91.018 Allergy to other foods; Z91.010 Allergy to peanuts; Z72.89 Other problems related to lifestyle; Z68.35 Body mass index [BMI] 35.0-35.9, adult; Z79.899 Other long term (current) drug therapy; Z98.891 History of uterine scar from previous surgery; Z98.890 Other specified postprocedural states
CPT/HCPCS: 22900; 81025; 88305; J0690; J1100; J1170; J1885; J2250; J2405; J3010; J7120; 88307; J2704

== ENCOUNTER 2019-10-11 08:00 | Outpatient (CLI) | payer MEDICAID ==
[2019-10-11 12:10] LABS: Hematocrit 30.5 % (30.3-42.9); Hemoglobin 9.3 gm/dl (10.1-14.3); Mean Corpuscular HGB Conc 30 % (30-34); Mean Corpuscular Volume 69 fl (79-97); Platelet Count 354 K/mm3 (140-440); Red Blood Count 4.43 M/mm3 (3.65-5.03); Red Cell Distribution Width 18.8 % (13.2-15.2)
== END 2019-10-11 10:00 | disposition home or self-care (01) ==
LOC: LAB 08:00 → EDSTATUS 11-15 07:30
PROVIDERS: ATTEND Surgery
DX: Z11.59 Encounter for screening for other viral diseases (principal); L05.91 Pilonidal cyst without abscess
CPT/HCPCS: 36415; 84703; 85027; U0003

== ENCOUNTER 2019-12-20 06:08 | Day surgery (SDC) | payer MEDICAID ==
[2019-12-15 11:02] LABS: Hematocrit 30.5 % (30.3-42.9); Hemoglobin 9.4 gm/dl (10.1-14.3); Mean Corpuscular HGB Conc 31 % (30-34); Mean Corpuscular Volume 71 fl (79-97); Platelet Count 321 K/mm3 (140-440); Red Blood Count 4.29 M/mm3 (3.65-5.03); Red Cell Distribution Width 19.8 % (13.2-15.2)
[2019-12-20] MEDS ORDERED: LACTATED RINGERS 1,000 ML IV SCH (06:20)
[2019-12-20] MEDS ORDERED: MIDAZOLAM 2 MG/2 ML INJ IV ONE (06:20)
[2019-12-20] MEDS ORDERED: BUPIVACAINE/PF (0.25%) 2.5 MG/ML 30 ML VIAL INFILTRATI ONE ×2 (06:22→08:18)
[2019-12-20] MEDS ORDERED: LIDOCAINE (1%) 10 MG/1 ML VIAL 20 ML MDV ONE (06:22)
[2019-12-20] MEDS ORDERED: BACTERIOSTATIC SODIUM CHLORIDE 0.9% 30 ML VIAL INFILTRATI ONE (06:35)
[2019-12-20] MEDS ORDERED: ceFAZolin/STERILE WATER 2 GM/20 ML SYRINGE IV NR (07:00)
[2019-12-20] MEDS ORDERED: HYDROmorphone 1 MG/1 ML INJ IV PRN (07:17)
[2019-12-20] MEDS ORDERED: ONDANSETRON 4 MG/2 ML INJ IV PRN (07:17)
--- NOTE | 2019-12-20 07:18 | Anesthesia Day of Surgery ---
Anesthesia Day of Surgery - Day of Surgery Patient Examined: Yes Patient H&P Reviewed: Yes Patient is NPO: Yes
--- NOTE | 2019-12-20 07:19 | Anesthesia Consultation ---
Anesthesia Consult and Med Hx Date of service: 12/20/19 - Airway Anesthetic Teeth Evaluation: Good ROM Head & Neck: Adequate Mental/Hyoid Distance: Adequate Mallampati Class: Class II Intubation Access Assessment: Probably Good - Pre-Operative Health Status ASA Pre-Surgery Classification: ASA2 Proposed Anesthetic Plan: General - Pulmonary Hx Smoking: Yes (02/12 PPD X 10 YRS) Hx Asthma: No COPD: No Hx Pneumonia: No Hx Sleep Apnea: No (BERNADINE DARREN SCREEN LOW RISK.) - Cardiovascular System Hx Hypertension: No Hx Heart Attack/AMI: No Hx Pacemaker: No Hx Internal Defibrillator: No Hx Heart Murmur: No - Central Nervous System Hx Seizures: No Hx Back Pain: Yes Hx Psychiatric Problems: Yes - Endocrine Hx End Stage Renal Disease: No Hx Cirrhosis: Yes Hx Liver Disease: No Hx Hypothyroidism: No - Hematic Hx Anemia: Yes Hx Sickle Cell Disease: No - Other Systems Hx Alcohol Use: Yes (1 GLASS WINE /DAY) Hx Substance Use: No Hx Cancer: No Hx Obesity: Yes (BMI 35) - Additional Comments Anesthesia Medical History Comments: Here [id number]
[2019-12-20] MEDS ORDERED: propofoL 200 MG/20 ML VIAL IV ONE (07:30)
[2019-12-20] MEDS ORDERED: fentaNYL 100 MCG/2 ML INJ ONE (07:31)
[2019-12-20] MEDS ORDERED: HYDROmorphone 1 MG/1 ML INJ ONE (07:55)
[2019-12-20] MEDS ORDERED: PHENYLEPHRINE/NS 1,000 MCG/10 ML SYRINGE (OR USE) IV ONE (07:57)
[2019-12-20] MEDS ORDERED: NEOSTIGMINE 10MG/10 ML INJ MDV ONE (07:57)
[2019-12-20] MEDS ORDERED: ROCURONIUM 50 MG/5 ML INJ IV ONE (07:57)
[2019-12-20] MEDS ORDERED: LIDOCAINE MPF (2%) 20 MG/1 ML VIAL 5 ML ONE (07:57)
[2019-12-20] MEDS ORDERED: ONDANSETRON 4 MG/2 ML INJ ONE (07:57)
[2019-12-20] MEDS ORDERED: dexAMETHasone 20 MG/5 ML VIAL ONE (07:57)
[2019-12-20] MEDS ORDERED: GLYCOPYRROLATE 0.4 MG/2 ML INJ ONE (07:57)
[2019-12-20] MEDS ORDERED: LIDOCAINE (1%) 10 MG/1 ML VIAL 20 ML MDV INFILTRATI ONE (08:18)
--- NOTE | 2019-12-20 09:18 | Short Stay Summary ---
Short Stay Documentation Date of service: 12/20/19 - History Principal diagnosis: pilonidal cyst/sinus H&P: obtained from office - Allergies and Medications Current Medications: Allergies nut - unspecified Allergy (Verified 03/10/19 16:03) Anaphylaxis peanut Allergy (Verified 03/10/19 16:03) Anaphylaxis tree and shrub pollen Allergy (Verified 03/10/19 16:03) Anaphylaxis Home Medications Medication Instructions Recorded Confirmed Last Taken Type No Known Home Medications [No 12/13/19 12/13/19 Unknown History Reported Home Medications] Active Medications Hydromorphone HCl (Dilaudid) 0.25 mg IV Q10MIN PRN PRN Reason: Pain, Moderate (4-6) Hydromorphone HCl (Dilaudid) 0.5 mg IV Q10MIN PRN PRN Reason: Pain , Severe (7-10) Lactated Ringer's (Lactated Ringers) 1,000 mls @ 75 mls/hr IV DIRECT DIMITRI Last Admin: 12/20/19 06:45 Dose: 75 mls/hr Documented by: Ondansetron HCl (Zofran) 4 mg IV ONCE PRN PRN Reason: Nausea And Vomiting - Brief post op/procedure progress note Date of procedure: 12/20/19 Pre-op diagnosis: pilonidal cyst/sinus Post-op diagnosis: same Procedure: excision pilonidal cyst and sinus tracts Anesthesia: GETA, local Findings: Chronically inflamed tissue with associated sinus tract Surgeon: TODD GARRIDO Estimated blood loss: minimal Pathology: list (pilonidal cyst with sinus tracts) Specimen disposition: to lab Condition: stable - Hospital course Hospital course: Pt observed in PACU and discharged to home in stable condition when criteria met - Disposition Condition at discharge: Good Disposition: [id number] TO HOME OR SELFCARE Short Stay Discharge Plan Activity: other (Avoid bending forward. Try to recline when sitting as much as possible) Diet: regular Wound: per your surgeon's advice (Leave dressing in place for 2 days. Do not remove until seen by Dr. Garrido in office. ) Additional Instructions: Patient discharge instructions You have undergone excision of pilonidal cyst Diet: Regular diet Make sure to drink plenty of water and stay hydrated Activity: You are encouraged to walk and may go up and down the steps. Do not perform activities where you will be bending forward a lot. Try to sit on a pillow at all times and recline in a chair, avoid sitting straight up. Do not drive if you are taking prescription, narcotic pain medications. Showering: Leave dressing in place. May sponge bathe. Avoid getting dressing wet. Wound care instructions: Leave dressing in place. Pain medications: You are encouraged to use over the counter pain medications like Tylenol as directed on the bottle. You have been given a prescription for stronger pain medication, please use as directed. If you have any unused Percocet, please return to your pharmacy to have is discarded. You may use ice pack to incision to help with pain. Reasons to call Surgeons office: If you have fevers >100.4 If you are having increasing abdominal pain or vomiting If you have pain that is not controlled with prescription pain medications If you have drainage if pus or redness around the incisions. When to come back to see your Surgeon: Please call the office ([phone]) to make an appointment to see the surgeon in 2 week. Call if you have any questions. [address] [facility] Ground floor Follow up with: [facility] MD MICHELLE [Primary Care Provider] - 7 Days TODD GARRIDO DO [Staff Physician] - 12/22/19 10:00 am Prescriptions: Ibuprofen [Motrin 800 MG tab] 800 mg PO Q8HR #30 tablet oxyCODONE /ACETAMINOPHEN [Percocet 5/325] 1 tab PO Q4HR PRN #30 tab PRN Reason: Pain , Severe (7-10)
[2019-12-20] MEDS: HYDROmorphone 1 MG/1 ML INJ IV PRN ×2 (09:49→09:59)
[2019-12-20] MEDS ORDERED: oxyCODONE /ACETAMINOPHEN 5-325MG TAB PO PRN (10:00)
[2019-12-20 10:27] VITALS: BP 117/67
--- NOTE | 2019-12-21 13:38 | Operative Report ---
Operative Report Operative Report: Date of procedure: 12/20/19 Pre-op diagnosis: pilonidal cyst/sinus Post-op diagnosis: same Procedure: excision pilonidal cyst and sinus tracts Anesthesia: GETA, local Findings: Chronically inflamed tissue with associated sinus tract Surgeon: TODD GARRIDO Estimated blood loss: minimal Pathology: list (pilonidal cyst with sinus tracts) Specimen disposition: to lab Condition: stable Hospital course: Pt observed in PACU and discharged to home in stable condition when criteria met HPI and indication: 29-year-old female with past medical history of pilonidal cyst which has been present for some time. The patient states that the area gets swollen and then will drain on its own and go away. She has had several episodes like this and despite conservative therapy with antibiotics, best hygiene practices, it continues to be bothersome. It was recommended that she undergo pilonidal cystectomy. All risk, benefits, alternatives were discussed with the patient questions answered. Consent was obtained for pilonidal cyst excision. Procedure in detail: Pt identified in the preoperative area and taken back to the operating room. After anesthesia was induced, she was placed on the operating room table in prone jackknife position. The buttocks were taped apart and the sacrum and gluteal cleft area prepped and draped in the usual sterile fashion. Local anesthetic was infiltrated into the skin. An elliptical incision was made around affected skin using a 10 blade, skewed slightly to the left of the midline such as to perform a Jad flap. Dissection was carried down through the subcutaneous tissue to the presacral fascia using electrocautery and wide local excision was performed. Chronically inflamed tissue involved was included in the excision. The surrounding subcutaneous tissue was healthy. The tissue was gently dissected off of the presacral fascia and passed off the table as a specimen. The skin and subcutaneous tissue was probed and no additional tracts were identified. The wound was irrigated and hemostasis ensured. The tape on the buttocks was released. A subcutaneous flap was created on the right. The deep layer was approximated with 2-0 Vicryl interrupted sutures. The skin was then able to be approximated without tension. The skin incision was approximated with several horizontal mattress sutures using 2-0 nylon. A [place] drain was placed into the wound bed and brought out through the middle of the incision and sutured to the skin using a 2-0 nylon interrupted stitch. The skin was cleansed and dried. The incision was covered with a 4 x 4 gauze ABD pads and Medipore tape. At the end of the case, all sponge, instrument, and sharp counts were correct x 2. The patient was transferred to the stretcher in supine position, awoken from anesthesia, and transferred to to PACU in stable condition.
== END 2019-12-20 11:10 | disposition home or self-care (01) ==
LOC: OR 06:08
PROVIDERS: ATTEND Surgery
DX: L05.91 Pilonidal cyst without abscess (principal); Z20.828 Contact with and (suspected) exposure to other viral communicable diseases; L05.92 Pilonidal sinus without abscess; F17.210 Nicotine dependence, cigarettes, uncomplicated; F32.9 Major depressive disorder, single episode, unspecified; F41.9 Anxiety disorder, unspecified; D64.9 Anemia, unspecified; E66.9 Obesity, unspecified; Z72.89 Other problems related to lifestyle; Z88.8 Allergy status to other drugs, medicaments and biological substances; Z91.018 Allergy to other foods; Z79.899 Other long term (current) drug therapy; Z98.891 History of uterine scar from previous surgery; Z98.890 Other specified postprocedural states; Z80.3 Family history of malignant neoplasm of breast; Z68.33 Body mass index [BMI] 33.0-33.9, adult
CPT/HCPCS: 11771; 36415; 84703; 85027; 88304; J0690; J1100; J1170; J2250; J2370; J2405; J2704; J2710; J3010; J7120; U0003